=== PATIENT | male | born 1995 | race Caucasian/White ===

== ENCOUNTER 2023-07-07 07:40 | Inpatient (IN) | payer OTHER, SELFPAY ==
[2023-07-07] VITALS (14 sets, daily range): BP systolic 113–139; BP diastolic 64–93; PULSE 60–89; RESP 11–23; TEMP 36.4–36.8; O2SAT 96–100; BMI 25.1; BMI 25.0
--- NOTE | 2023-07-07 08:05 | DI.RAD.S_ITS ---
PROCEDURE: XR CHEST 1V INDICATIONS: chest pain TECHNIQUE: One view of the chest was acquired. COMPARISON: None. FINDINGS: Surgical changes and devices: None. Lungs and pleura: Lungs are clear. No pleural effusions or pneumothorax. Mediastinum: Mediastinal contours appear normal. Heart size is normal. Bones and chest wall: No suspicious bony lesions. Overlying soft tissues appear unremarkable. IMPRESSION: No acute cardiopulmonary abnormality is seen. Dictated by: Mata Carmichael M.D. on 07/07/2023 at 8:35 Approved by: Mata Carmichael M.D. on 07/07/2023 at 8:36
[2023-07-07 08:12] LABS: Add Manual Diff / Slide Review NO; Basophils Absolute Auto 0 /uL (0-100); Basophils Percent Auto 0.7 % (0-2); Eosinophils Absolute Auto 0 /uL (0-450); Eosinophils Percent Auto 0.7 % (2-4); Hemoglobin 14.5 g/dL (13.5-17.5); Lymphocytes Absolute Auto 1800 /uL (1100-4500); Lymphocytes Percent Auto 33.5 % (25-40); Mean Corpuscular HGB Conc 33.7 % (30-36); Mean Corpuscular Hemoglobin 29.1 PG (26-34); Mean Corpuscular Volume 86.3 fL (80-100); Monocytes Absolute Auto 500 /uL (0-900); Monocytes Percent Auto 10.2 % (3-14); Neutrophils Absolute Auto 2900 /uL (1500-7000); Neutrophils Percent Auto 54.9 % (50-75); Platelet Count 252 X10^3/uL (150-400); Red Blood Cell Count 4.98 X10^6/uL (4.5-5.9); Red Cell Distribution Width 12.6 % (11.6-14.8); White Blood Cell Count 5.3 X10^3/uL (4.5-11.0)
[2023-07-07 08:14] LABS: Prothrombin Time 11.9 SECONDS (9.4-12.5)
[2023-07-07 08:16] LABS: PTT Partial Thromboplastin Tim 44 SECONDS (25.1-36.5)
[2023-07-07 08:19] LABS: Alanine Aminotransferase 65 IU/L (<50); Albumin 4.8 g/dL (3.5-5.0); Albumin Globulin Ratio 1.5 (1.0-2.8); Alkaline Phosphatase 67 U/L (38-126); Aspartate Aminotransferase 205 IU/L (17-59); BUN Creatinine Ratio 22.1 (6-22); Bilirubin Total 0.8 mg/dL (0.2-1.3); Blood Urea Nitrogen 15 mg/dL (9-20); Calcium 9.4 mg/dL (8.4-10.2); Carbon Dioxide 29 mmol/L (22-32); Chloride 106 mmol/L (98-107); Estimated Glomerular Filt Rate > 60 mL/min (>60); Globulin 3.3 g/dL (1.7-4.1); Glucose 95 mg/dL (70-100); HEMOLYSIS < 15 (0-50); Lipase 64 U/L (23-300); Potassium 4.1 mmol/L (3.4-5.1); Sodium 139 mmol/L (137-145); Total Protein 8.1 g/dL (6.3-8.2)
[2023-07-07 08:30] LABS: Troponin I < 0.012 ng/mL (0.01-0.034)
[2023-07-07 08:36] LABS: Creatine Kinase 9789 U/L (55-170)
--- NOTE | 2023-07-07 08:54 | ED_ITS ---
HPI - Chest Pain General Chief Complaint: Chest Pain Stated Complaint: heart feels weak, heavy chest Time Seen by Provider: 07/07/23 07:55 Source: patient Mode of arrival: Family Vehicle Limitations: no limitations History of Present Illness HPI narrative: Patient 28-year-old healthy male presents today with chest tightness. 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 He does not feel like he is exercised excessively. He has been able to do so without any worsening chest pain. He denies any shortness of breath fever chills or cough. Really not reproducible in his chest. Although it is pretty constant is nonradiating. He has felt fluttering in the past but not feeling fluttering recently or now. Not dizzy or lightheaded. Denies any significant muscle soreness Related Data Home Medications Medication Instructions Recorded Confirmed No Known Home Medications 07/07/23 07/07/23 Allergies Allergy/AdvReac Type Severity Reaction Status Date / Time Penicillins Allergy Rash Verified 07/07/23 08:16 Patient History Social History household members: significant other Smoking Status: Current some day smoker alcohol intake: current Smoking Status: Current some day smoker tobacco type: cigars alcohol intake frequency: 0-2 drinks per day Substance Use Type: does not use Exam Initial Vital Signs Initial Vital Signs: Vital Signs Pulse Rate 89 07/07/23 07:48 Blood Pressure 139/93 H 07/07/23 07:48 Pulse Oximetry 100 07/07/23 07:48 GENERAL: Alert very well-appearing 28-year-old and in no acute distress. HEENT: Head atraumatic,EOMI, pupils reactive, face symmetric, moist mucous membranes CARDIOVASCULAR: Regular rate and rhythm without murmurs, rubs or gallops. RESPIRATORY: Breath sounds equal bilaterally, no wheezes rales or rhonchi. ABDOMEN: Soft, nontender. Normoactive bowel sounds all 4 quadrants. No guarding or rebound. EXTREMITIES: Normal range of motion, no clubbing or edema. Neurovascularly intact NEUROLOGICAL: Alert and oriented x4.Normal gait and speech. SKIN: Warm, dry, no laceration, no petechiae, no rashes or lesions. Course Orders Ordered: Acetaminophen (Acetaminophen 325 Mg Tablet) 650 mg PO Q6H PRN PRN Reason: Fever/Mild Pain (1-3) Sodium Chloride (Normal Saline 0.9%) 1,000 mls @ 200 mls/hr IV CONT EMILIANO Last Infusion: 07/07/23 10:49 Dose: 200 mls/hr Documented By: Infusion: 07/07/23 10:19 Dose: 0 mls/hr Documented By: Admin: 07/07/23 09:51 Dose: 200 mls/hr Documented By: ANTONIA Naloxone HCl (Naloxone 0.4 Mg/Ml Vial) 0.2 mg IV Q2MIN PRN PRN Reason: Opiate Reversal Ondansetron HCl (Ondansetron 4 Mg Odt) 4 mg PO Q8HR PRN PRN Reason: Nausea And Vomiting Oxycodone HCl (Oxycodone Ir 5 Mg Tablet) 5 mg PO Q3H PRN PRN Reason: Pain, Moderate (4-6) Discontinued Medications Aspirin (Aspirin 81 Mg Chew Tab) 324 mg PO NOW ONE Stop: 07/07/23 08:06 Last Admin: 07/07/23 08:08 Dose: Not Given Documented By: CONSUELO Sodium Chloride (Normal Saline 0.9%) 1,000 mls @ 1,000 mls/hr IV BOLUS ONE Stop: 07/07/23 09:42 Last Infusion: 07/07/23 09:43 Dose: Infused Documented By: Admin: 07/07/23 08:59 Dose: 1,000 mls/hr Documented By: ANTONIA Vital Signs Vital signs: Vital Signs - 8 hr 07/07/23 08:05 Temperature 97.5 F L Pulse Rate 89 Respiratory Rate 19 Blood Pressure 139/93 H Pulse Oximetry 100 Oxygen Delivery Method Room Air MDM - Chest Pain Lab Data 07/07/23 07:58 07/07/23 14:00 Labs: Lab Results 07/07/23 07/07/23 Range/Units 07:58 09:01 WBC 5.3 (4.5-11.0) X10^3/uL RBC 4.98 (4.5-5.9) X10^6/uL Hgb 14.5 (13.5-17.5) g/dL Hct 43.0 (41-53) % MCV 86.3 (80-100) fL MCH 29.1 (26-34) PG MCHC 33.7 (30-36) % RDW 12.6 (11.6-14.8) % Plt Count 252 (150-400) X10^3/uL Neut % (Auto) 54.9 (50-75) % Lymph % (Auto) 33.5 (25-40) % [place] % (Auto) 10.2 (3-14) % Eos % (Auto) 0.7 L (2-4) % Baso % (Auto) 0.7 (0-2) % Neut # (Auto) 2900 (1550-8964) /uL Lymph # (Auto) 1800 (1447-0000) /uL [place] # (Auto) 500 (0-900) /uL Eos # (Auto) 0 (0-450) /uL Baso # (Auto) 0 (0-100) /uL PT 11.9 (9.4-12.5) SECONDS INR 1.0 (0.9-1.3) APTT 44 H (25.1-36.5) SECONDS Sodium 139 (137-145) mmol/L Potassium 4.1 (3.4-5.1) mmol/L Chloride 106 (98-107) mmol/L Carbon Dioxide 29 (22-32) mmol/L BUN 15 (9-20) mg/dL Creatinine 0.68 (0.66-1.25) mg/dL Estimated GFR > 60 (>60) mL/min BUN/Creatinine Ratio 22.1 H (6-22) Glucose 95 (70-100) mg/dL Calcium 9.4 (8.4-10.2) mg/dL Magnesium 2.0 (1.6-2.3) mg/dL Total Bilirubin 0.8 (0.2-1.3) mg/dL AST 205 H (17-59) IU/L ALT 65 H (<50) IU/L Alkaline Phosphatase 67 (38-126) U/L Total Creatine Kinase 9789 H (55-170) U/L Troponin I < 0.012 (0.01-0.034) ng/mL Total Protein 8.1 (6.3-8.2) g/dL Albumin 4.8 (3.5-5.0) g/dL Globulin 3.3 (1.7-4.1) g/dL Albumin/Globulin Ratio 1.5 (1.0-2.8) Lipase 64 (23-300) U/L Urine Color Yellow Urine Appearance Clear Urine pH 5.5 (4.5-8.0) Ur Specific [place] <=1.005 (1.000-1.035) Urine Protein Negative (Negative) Urine Glucose (UA) Negative (Negative) g/dL Urine Ketones Negative (NEGATIVE) Urine Occult Blood Negative (Negative) Urine Nitrate Negative (Negative) Urine Bilirubin Negative (NEGATIVE) Urine Urobilinogen 0.2 (0.2) E.U./dL Ur Leukocyte Esterase Negative (NEGATIVE) Urine RBC None seen (0-5/HPF) Urine WBC None seen (0-5/HPF) Ur Squamous Epith Cells None seen (0-5/HPF) Urine Bacteria None seen (None) Ur Culture Indicated? Cult not indicated Vol Urine Centrifuged 10ml (spun) Imaging Data Chest x-ray: Radiologist's Impression: PROCEDURE: XR CHEST 1V INDICATIONS: chest pain TECHNIQUE: One view of the chest was acquired. COMPARISON: None. FINDINGS: Surgical changes and devices: None. Lungs and pleura: Lungs are clear. No pleural effusions or pneumothorax. Mediastinum: Mediastinal contours appear normal. Heart size is normal. Bones and chest wall: No suspicious bony lesions. Overlying soft tissues appear unremarkable. IMPRESSION: No acute cardiopulmonary abnormality is seen. Dictated by: Mata Carmichael M.D. on 07/07/2023 at 8:35 ECG Data Interpretation: Sinus rhythm rate 83 TN interval 156 QRS [address] changes MDM Narrative Medical decision making narrative: Patient healthy 28-year-old male presents with some chest tightness and discomfort, he reports excessive exercise. Blood work has been reviewed abnormal values include a CPK of 9789 with AST 205 ALT 65 bilirubin 0.8, troponin is negative Chest x-ray reviewed Bedside ultrasound done by myself does not show a pericardial effusion Chest x-ray has been reviewed without cardiopulmonary prior EKG has been reviewed Patient overall appears very comfortable but is found to have rhabdomyolysis I suspect combination of supplement and exercise. He has no renal dysfunction urinalysis appears clear without RBC Dr. Page accepts patient Discharge Plan Departure Patient Disposition: Admitted as Observation Clinical Impression: Rhabdomyolysis Admit Date/Time: 07/07/23 09:43 Admit Provider: Irving Page
--- NOTE | 2023-07-07 08:57 | PC.NURSE ---
Chest pressure at rest; worse when working out. Mild pain. Pt states he feels his heart beat is more intense at times.
[2023-07-07] MEDS: SODIUM CHLORIDE 0.9% 1,000 ML 1000 ML IV (08:59)
[2023-07-07 09:08] LABS: Appearance Urine UA CLEAR; Bilirubin Urine UA NEGATIVE (NEGATIVE); Color Urine UA YELLOW; Glucose Urine UA NEGATIVE (Negative); Ketones Urine UA NEGATIVE (NEGATIVE); Leukocyte Esterase Urine UA NEGATIVE (NEGATIVE); Nitrite Urine UA NEGATIVE (Negative); Occult Blood Urine UA NEGATIVE (Negative); Protein Urine UA NEGATIVE (Negative); Specific Gravity Urine UA <=1.005 (1.000-1.035); Urobilinogen Urine UA 0.2 E.U./dL (0.2); pH Urine UA 5.5 (4.5-8.0)
[2023-07-07 09:09] LABS: Urine Volume 10mL (spun)
[2023-07-07 09:10] LABS: Bacteria Urine None Seen; Culture Indicated Urine Cult Not Indicated; RBC Urine None Seen (0-5/HPF); Squamous Epithelial Cell Urine None Seen (0-5/HPF); WBC Urine None Seen (0-5/HPF)
[2023-07-07] MEDS: SODIUM CHLORIDE 0.9% 1,000 ML 200 ML IV ×2 (09:51→19:51)
--- NOTE | 2023-07-07 11:49 | PM.HP.1 ---
History of Present Illness History of Present Illness Date Patient Seen: 07/07/23 Time Patient Seen: 11:49 Chief complaint: heart feels weak, heavy chest Narrative: 28 M with no PMH who presented to the hospital with chest pain. Chest pain is constant, pressure like / squeezing sensation without any radiation. It does not worsen with breathing or position changes, the area is a bit tender. He has had no fever, nauea, vomiting, shortness of breath. No dysuria or urine color changes. 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 Started taking a muscle / protein supplement as well. In the ER, vitals were unremarkable, as was a chest xray. Chest pain was reproducible. CK level however showed a CK of 9789 with AST 205 and ALT 65. EKG showed a possible U wave vs artifact but potassium was normal. UA was negative and showed no occult blood. He was admitted for rhabdomyolysis given his CK elevation and concern for possible development of kidney failure. [facility] Social History household members: significant other Smoking Status: Current some day smoker alcohol intake: current Meds Home Medications and Allergies Home Medications Medication Instructions Recorded Confirmed Type No Known Home Medications 07/07/23 07/07/23 History Allergies Allergy/AdvReac Type Severity Reaction Status Date / Time Penicillins Allergy Rash Verified 07/07/23 08:16 Review of Systems Review of Systems Narrative: All other systems reviewed with the patient and are negative unless otherwise stated. Exam Vital Signs (past 8 hours): - 07/07/23 07:48 07/07/23 07:48 07/07/23 08:04 Temperature Pulse Rate 89 72 Respiratory Rate 11 L Blood Pressure 139/93 H Pulse Oximetry 100 97 Oxygen Delivery Method Oxygen Flow Rate 07/07/23 08:05 07/07/23 08:05 07/07/23 08:05 Temperature 97.5 F L Pulse Rate 89 64 Respiratory Rate 19 15 Blood Pressure 139/93 H 134/78 Pulse Oximetry 100 100 Oxygen Delivery Method Room Air Oxygen Flow Rate 07/07/23 08:30 07/07/23 08:30 07/07/23 09:00 Temperature Pulse Rate 78 76 Respiratory Rate 23 14 Blood Pressure 134/64 Pulse Oximetry 99 100 Oxygen Delivery Method Oxygen Flow Rate 07/07/23 09:30 07/07/23 09:47 07/07/23 09:47 Temperature Pulse Rate 61 70 Respiratory Rate 17 15 Blood Pressure 127/81 Pulse Oximetry 100 96 Oxygen Delivery Method Oxygen Flow Rate 07/07/23 10:52 07/07/23 11:35 Temperature 97.6 F Pulse Rate 60 Respiratory Rate 12 Blood Pressure 136/77 Pulse Oximetry 99 100 Oxygen Delivery Method Room Air Oxygen Flow Rate 0 0 Oxygen Delivery Method Room Air Oxygen Flow Rate 0 Narrative Exam Narrative: General:? Patient is well developed and well nourished, in no distress at this time. HEENT:? Normocephalic, atraumatic, extraocular muscles intact, oral pharynx is clear and mucous membranes are moist. Abdomen: S NT ND. Musculoskeletal:? Muscle strength and tone are equal within normal limits, no deformity. Extremities: No edema or joint effusions. Skin:? Pale,? Warm to touch,dry and intact without rashes, ulcerations or petechiae.? Neuro:? Alert and orientated x3,? sensation to touch intact in all extremities, no gross deficits noted of cranial nerves. Psych:? Patient has a well-kept appearance, appropriate affect, mental status attitude thought context and judgment are appropriate for age. Objective ECG Impression: likely normal sinus rhythm, likely artifact rather than U wave Labs 07/07/23 07:58 07/07/23 07:58 Labs: Laboratory Results - last 24 hr 07/07/23 07/07/23 07:58 09:01 WBC 5.3 RBC 4.98 Hgb 14.5 Hct 43.0 MCV 86.3 MCH 29.1 MCHC 33.7 RDW 12.6 Plt Count 252 Neut % (Auto) 54.9 Lymph % (Auto) 33.5 [place] % (Auto) 10.2 Eos % (Auto) 0.7 L Baso % (Auto) 0.7 Neut # (Auto) 2900 Lymph # (Auto) 1800 [place] # (Auto) 500 Eos # (Auto) 0 Baso # (Auto) 0 PT 11.9 INR 1.0 APTT 44 H Sodium 139 Potassium 4.1 Chloride 106 Carbon Dioxide 29 BUN 15 Creatinine 0.68 Estimated GFR > 60 BUN/Creatinine Ratio 22.1 H Glucose 95 Calcium 9.4 Magnesium 2.0 Total Bilirubin 0.8 AST 205 H ALT 65 H Alkaline Phosphatase 67 Total Creatine Kinase 9789 H Troponin I < 0.012 Total Protein 8.1 Albumin 4.8 Globulin 3.3 Albumin/Globulin Ratio 1.5 Lipase 64 Urine Color Yellow Urine Appearance Clear Urine pH 5.5 Ur Specific [place] <=1.005 Urine Protein Negative Urine Glucose (UA) Negative Urine Ketones Negative Urine Occult Blood Negative Urine Nitrate Negative Urine Bilirubin Negative Urine Urobilinogen 0.2 Ur Leukocyte Esterase Negative Urine RBC None seen Urine WBC None seen Ur Squamous Epith Cells None seen Urine Bacteria None seen Ur Culture Indicated? Cult not indicated Vol Urine Centrifuged 10ml (spun) Assessment & Plan Assessment & Plan narrative: 1. Acute non-traumatic rhabdomyolysis, present on admission - given 1L NS bolus in the ER, continue NS at 200 cc per hour - check 6 hr CK and repeat BMP. If improving but still >1000 will continue hydration overnight and repeat in the morning. - no tele at this time, suspect chest pain is musculoskeletal. If shortness of breath develops or hypoxia will get CTA. EKG shows NSR (possible U wave but more likely artifact / motion). Code: Full, surrogate is patient's mother DVT: Low risk, ambulatory, not indicated I have utilized all available immediate resources to obtain, update, or review the patient's current medications. Dispo: patient admitted under observation status. Will need continued IV fluids until improvement of CK values indicating lower risk of acute renal failure. Additional history obtained via discussions with the ER provider. These discussions contributed to the creation of the above assessment and plan. I have reviewed patient's presenting documentation, labs, and imaging personally. Quality VTE Deep Vein Thrombosis/Pulmonary Embolism Present on Admission: No
[2023-07-07 14:38] LABS: BUN Creatinine Ratio 18.2 (6-22); Blood Urea Nitrogen 12 mg/dL (9-20); Calcium 8.4 mg/dL (8.4-10.2); Carbon Dioxide 27 mmol/L (22-32); Chloride 108 mmol/L (98-107); Estimated Glomerular Filt Rate > 60 mL/min (>60); Glucose 104 mg/dL (70-100); HEMOLYSIS 38 (0-50); Potassium 3.6 mmol/L (3.4-5.1); Sodium 138 mmol/L (137-145)
[2023-07-07 15:29] LABS: Creatine Kinase 7399 U/L (55-170)
--- NOTE | 2023-07-07 16:11 | PC.NURSE ---
Patient arrived to room 212 this a.m. just prior to noon. He is A&OX4, VSS, afebrile on RA. He is independent in the room, denies SOB, dizziness, palpitations, n/v. He states mild left sided chest pain 1-05/27. IVF NS @ 200 ml/hr. Creatinine Kinase level still elevated but improving. RN clarified with MD, no orders for cardiac monitoring at this time.
[2023-07-08] VITALS (11 sets, daily range): BP systolic 107–122; BP diastolic 62–72; PULSE 55–77; RESP 15–18; TEMP 36.3–36.4; O2SAT 96–100
[2023-07-08] MEDS: SODIUM CHLORIDE 0.9% 1,000 ML 200 ML IV ×4 (00:15→16:35)
[2023-07-08 05:03] LABS: Add Manual Diff / Slide Review NO; Basophils Absolute Auto 0 /uL (0-100); Basophils Percent Auto 0.7 % (0-2); Eosinophils Absolute Auto 100 /uL (0-450); Eosinophils Percent Auto 1.5 % (2-4); Hematocrit 38.3 % (41-53); Hemoglobin 12.9 g/dL (13.5-17.5); Lymphocytes Absolute Auto 1900 /uL (1100-4500); Lymphocytes Percent Auto 34.4 % (25-40); Mean Corpuscular HGB Conc 33.7 % (30-36); Mean Corpuscular Hemoglobin 28.9 PG (26-34); Mean Corpuscular Volume 85.9 fL (80-100); Monocytes Absolute Auto 500 /uL (0-900); Monocytes Percent Auto 9.9 % (3-14); Neutrophils Absolute Auto 2900 /uL (1500-7000); Neutrophils Percent Auto 53.5 % (50-75); Platelet Count 224 X10^3/uL (150-400); Red Blood Cell Count 4.46 X10^6/uL (4.5-5.9); Red Cell Distribution Width 12.4 % (11.6-14.8); White Blood Cell Count 5.5 X10^3/uL (4.5-11.0)
[2023-07-08 05:18] LABS: Alanine Aminotransferase 61 IU/L (<50); Albumin 3.7 g/dL (3.5-5.0); Albumin Globulin Ratio 1.4 (1.0-2.8); Alkaline Phosphatase 54 U/L (38-126); Aspartate Aminotransferase 195 IU/L (17-59); BUN Creatinine Ratio 18.2 (6-22); Bilirubin Total 0.5 mg/dL (0.2-1.3); Blood Urea Nitrogen 12 mg/dL (9-20); Calcium 8.3 mg/dL (8.4-10.2); Carbon Dioxide 26 mmol/L (22-32); Chloride 110 mmol/L (98-107); Estimated Glomerular Filt Rate > 60 mL/min (>60); Globulin 2.6 g/dL (1.7-4.1); Glucose 106 mg/dL (70-100); HEMOLYSIS 23 (0-50); Sodium 140 mmol/L (137-145); Total Protein 6.3 g/dL (6.3-8.2)
[2023-07-08 06:03] LABS: Creatine Kinase 9269 U/L (55-170)
--- NOTE | 2023-07-08 12:21 | PM.PN.1 ---
Subjective <kyree [facility] Filed: 07/08/23 12:31> Subjective Interval history: Papo Marc is a 28 YO M with rhabdomyolysis. He was admitted overnight to monitor his CK levels and any electrolyte abnormalities. He is feeling great this morning with no overnight events. His chest pain has completely resolved. He is still complaining of some UE and LE muscle soreness but is otherwise asymptomatic. He reports no dark or bloody urine at this time. Exam <[facility] Filed: 07/08/23 12:31> Vital Signs (past 8 hours): - 07/08/23 04:45 07/08/23 06:00 07/08/23 08:00 Temperature 97.6 F Pulse Rate 77 55 L Respiratory Rate 16 Blood Pressure 112/67 107/63 Pulse Oximetry 97 98 Oxygen Delivery Method Room Air Oxygen Flow Rate 0 0 07/08/23 09:00 07/08/23 10:00 07/08/23 12:00 Temperature 97.4 F L Pulse Rate 70 Respiratory Rate 18 Blood Pressure 110/70 Pulse Oximetry 98 100 Oxygen Delivery Method Room Air Room Air Oxygen Flow Rate 0 Oxygen Delivery Method Room Air Oxygen Flow Rate 0 Narrative Exam Narrative: General:? Patient is well developed and well nourished, in no distress at this time. HEENT:? Normocephalic, atraumatic, extraocular muscles intact, oral pharynx is clear and mucous membranes are moist. Abdomen: S NT ND. Musculoskeletal:? Muscle strength and tone are equal within normal limits, no deformity. Extremities: No edema or joint effusions. Skin:? Pale,? Warm to touch,dry and intact without rashes, ulcerations or petechiae.? Neuro:? Alert and orientated x3,? sensation to touch intact in all extremities, no gross deficits noted of cranial nerves. Psych:? Patient has a well-kept appearance, appropriate affect, mental status attitude thought context and judgment are appropriate for age. Objective <kyree [facility] Filed: 07/08/23 12:31> Labs 07/08/23 04:48 07/08/23 04:48 Labs: Laboratory Results - last 24 hr 07/07/23 07/08/23 14:00 04:48 WBC 5.5 RBC 4.46 L Hgb 12.9 L Hct 38.3 L MCV 85.9 MCH 28.9 MCHC 33.7 RDW 12.4 Plt Count 224 Neut % (Auto) 53.5 Lymph % (Auto) 34.4 [place] % (Auto) 9.9 Eos % (Auto) 1.5 L Baso % (Auto) 0.7 Neut # (Auto) 2900 Lymph # (Auto) 1900 [place] # (Auto) 500 Eos # (Auto) 100 Baso # (Auto) 0 Sodium 138 140 Potassium 3.6 4.0 Chloride 108 H 110 H Carbon Dioxide 27 26 BUN 12 12 Creatinine 0.66 0.66 Estimated GFR > 60 > 60 BUN/Creatinine Ratio 18.2 18.2 Glucose 104 H 106 H Calcium 8.4 8.3 L Total Bilirubin 0.5 AST 195 H ALT 61 H Alkaline Phosphatase 54 Total Creatine Kinase 7399 H 9269 H Total Protein 6.3 Albumin 3.7 Globulin 2.6 Albumin/Globulin Ratio 1.4 [facility] <Ezra Paco - Last Filed: 07/08/23 12:31> Social History household members: significant other Smoking Status: Current some day smoker alcohol intake: current Assessment & Plan <Ezra Robertbrigid - Last Filed: 07/08/23 12:31> Assessment & Plan narrative: 1. Acute non-traumatic rhabdomyolysis, present on admission - given 1L NS bolus in the ER, continue NS at 200 cc per hour - check morning CK and repeat BMP. If improving but still >5000 will continue hydration overnight and repeat in the morning. - no tele at this time, suspect chest pain is musculoskeletal. If shortness of breath develops or hypoxia will get CTA. EKG shows NSR (possible U wave but more likely artifact / motion). - Ck still elevated at 9269 Code: Full, surrogate is patient's mother DVT: Low risk, ambulatory, not indicated I have utilized all available immediate resources to obtain, update, or review the patient's current medications. Dispo: patient admitted under observation status. Will need continued IV fluids until improvement of CK values indicating lower risk of acute renal failure. Additional history obtained via discussions with the ER provider. These discussions contributed to the creation of the above assessment and plan. I have reviewed patient's presenting documentation, labs, and imaging personally. <Xu Hawley DO - Last Filed: 07/08/23 12:46> Assessment & Plan narrative: 1. Acute non-traumatic rhabdomyolysis, present on admission - given 1L NS bolus in the ER, continue NS at 200 cc per hour - trend CK until levels <5000 - Ck still elevated at 9269 2. Chest pain - likely MSK, now resolved Code: Full, surrogate is patient's mother DVT: Low risk, ambulatory, not indicated I have utilized all available immediate resources to obtain, update, or review the patient's current medications. Dispo: 1-2 days. Will need continued IV fluids until improvement of CK values indicating lower risk of acute renal failure. Quality <Ezra Antonio - Last Filed: 07/08/23 12:31> VTE Deep Vein Thrombosis/Pulmonary Embolism Present on Admission: No
--- NOTE | 2023-07-08 14:34 | CM.DANOTE ---
Initial DCP Assessment Note Reviewed EMR and team rounds for pt's medical status and updates. Met with pt and his significant other at bedside to introduce self and role. Pt was found to be awake/alert/oriented and able to discuss d/c needs/preferences for home once he's medically cleared. 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 Payor: Dave Mon PCP: [facility] Pt is a 28 year-old M who presented to the ED last evening with c/o chest tightness and pain following an excessive workout. He was diagnosed with rhabdomyolysis, and was then admitted for concerns of CK elevating and risk for kidney failure. Plan for admission includes monitoring kidney function, IV fluids. Pt will remain inpt overnight and d/c on Monday home w/SO. No anticipated d/c needs identified at this time. DOOR CUTTER will continue to follow and assist with any further evolving needs that may arise during his admission. Discharge Planning/Care Management CM Discharge Assessment Start: 07/08/23 14:15 Freq: Status: Active Protocol: Document 07/08/23 14:16 DPL (Rec: 07/08/23 14:34 DPL [id number]) Discharge Planning Assessment Assigned Construction Producer CARO Bueno Advance Directives? No History Provided By Patient,Medical Record Has Patient been admitted in last 30 No days? Prior Living Arrangements House Household Members significant other Type of transporation used prior to Drives own vehicle admit Independent with ADL's Yes Is patient alert and oriented? Yes Comment N/A Caregiver for Another No Barriers to Discharge No Discharge Plan Home Transportation Arrangement Significant Other Referrals Initiated None needed Whiteboard Updated in Patient Room with Yes name and ext. # of Construction Producer Review Status In Process Please Provide Date Initial DC 07/08/23 Assessment Was Performed
[2023-07-09 03:00] VITALS: BP 103/52; PULSE 61; RESP 15; TEMP 35.8; O2SAT 98
[2023-07-09 05:22] LABS: Add Manual Diff / Slide Review NO; Basophils Absolute Auto 0 /uL (0-100); Basophils Percent Auto 0.7 % (0-2); Eosinophils Absolute Auto 100 /uL (0-450); Eosinophils Percent Auto 1.5 % (2-4); Hematocrit 39.7 % (41-53); Hemoglobin 13.4 g/dL (13.5-17.5); Lymphocytes Absolute Auto 2000 /uL (1100-4500); Lymphocytes Percent Auto 35.9 % (25-40); Mean Corpuscular HGB Conc 33.8 % (30-36); Mean Corpuscular Hemoglobin 29.2 PG (26-34); Mean Corpuscular Volume 86.3 fL (80-100); Monocytes Absolute Auto 600 /uL (0-900); Monocytes Percent Auto 10.8 % (3-14); Neutrophils Absolute Auto 2800 /uL (1500-7000); Neutrophils Percent Auto 51.1 % (50-75); Platelet Count 216 X10^3/uL (150-400); Red Cell Distribution Width 12.4 % (11.6-14.8); White Blood Cell Count 5.5 X10^3/uL (4.5-11.0)
[2023-07-09 05:36] LABS: Alanine Aminotransferase 78 IU/L (<50); Albumin 4.1 g/dL (3.5-5.0); Albumin Globulin Ratio 1.5 (1.0-2.8); Alkaline Phosphatase 56 U/L (38-126); Aspartate Aminotransferase 222 IU/L (17-59); BUN Creatinine Ratio 17.4 (6-22); Bilirubin Total 0.5 mg/dL (0.2-1.3); Blood Urea Nitrogen 12 mg/dL (9-20); Calcium 8.9 mg/dL (8.4-10.2); Carbon Dioxide 30 mmol/L (22-32); Chloride 108 mmol/L (98-107); Estimated Glomerular Filt Rate > 60 mL/min (>60); Globulin 2.7 g/dL (1.7-4.1); Glucose 97 mg/dL (70-100); HEMOLYSIS 15 (0-50); Potassium 4.1 mmol/L (3.4-5.1); Sodium 140 mmol/L (137-145); Total Protein 6.8 g/dL (6.3-8.2)
[2023-07-09 05:54] LABS: Creatine Kinase 8395 U/L (55-170)
[2023-07-09 06:00] VITALS: O2SAT 98
[2023-07-09] MEDS: SODIUM CHLORIDE 0.9% 1,000 ML 200 ML IV (06:18)
[2023-07-09 07:00] VITALS: BP 103/65; PULSE 58; RESP 16; TEMP 36.6; O2SAT 99
--- NOTE | 2023-07-09 09:43 | PM.DS.1 ---
History of Present Illness History of Present Illness Chief complaint: heart feels weak, heavy chest Narrative: 28 M with no PMH who presented to the hospital with chest pain. Chest pain is constant, pressure like / squeezing sensation without any radiation. It does not worsen with breathing or position changes, the area is a bit tender. He has had no fever, nauea, vomiting, shortness of breath. No dysuria or urine color changes. 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 Started taking a muscle / protein supplement as well. In the ER, vitals were unremarkable, as was a chest xray. Chest pain was reproducible. CK level however showed a CK of 9789 with AST 205 and ALT 65. EKG showed a possible U wave vs artifact but potassium was normal. UA was negative and showed no occult blood. He was admitted for rhabdomyolysis given his CK elevation and concern for possible development of kidney failure. Discharge Providers Provider Date of admission: 07/07/23 09:43 Discharge Date: 07/09/23 Discharge provider: Xu Hawley DO Summary Hospital Course Discharge Diagnosis: 1. Acute non-traumatic rhabdomyolysis, present on admission - given 1L NS bolus in the ER, received NS at 200 cc per hour and making lots of urine - trend CK until levels <5000 - Ck elevated at 9269 but now downtrending to 8k - recheck BMP and CK in 1 week as outpatinet - patient will hydrate well and rest for a week until labs are done 2. Chest pain - likely MSK, now resolved Hospital Course: Admitted for CP and found to have rhabdo from overexercise. Had worked out hard in the gym for 5 days straight. CK levels at 9k so admitted for monitoring of Cr and continuous IVF. Also had elevated LFT's likely from muscle source. His CK levels lowered to 8k and Cr remained stable. He was discharged to get a CMP and CK check as outpatient in 1 week. Exam Vital Signs (past 8 hours): - 07/09/23 02:00 07/09/23 03:00 07/09/23 06:00 Temperature 96.5 F L Pulse Rate 61 Respiratory Rate 15 Blood Pressure 103/52 L Pulse Oximetry 98 98 Oxygen Delivery Method Room Air Room Air Oxygen Flow Rate 0 Oxygen Delivery Method Room Air Oxygen Flow Rate 0 Narrative Exam Narrative: General:? Patient is well developed and well nourished, in no distress at this time. HEENT:? Normocephalic, atraumatic, extraocular muscles intact, oral pharynx is clear and mucous membranes are moist. Abdomen: S NT ND. Musculoskeletal:? Muscle strength and tone are equal within normal limits, no deformity. Extremities: No edema or joint effusions. Skin:? Pale,? Warm to touch,dry and intact without rashes, ulcerations or petechiae.? Neuro:? Alert and orientated x3,? sensation to touch intact in all extremities, no gross deficits noted of cranial nerves. Psych:? Patient has a well-kept appearance, appropriate affect, mental status attitude thought context and judgment are appropriate for age. Objective Labs 07/09/23 05:11 07/09/23 05:11 Labs: Laboratory Results - last 24 hr 07/09/23 05:11 WBC 5.5 RBC 4.60 Hgb 13.4 L Hct 39.7 L MCV 86.3 MCH 29.2 MCHC 33.8 RDW 12.4 Plt Count 216 Neut % (Auto) 51.1 Lymph % (Auto) 35.9 Saline % (Auto) 10.8 Eos % (Auto) 1.5 L Baso % (Auto) 0.7 Neut # (Auto) 2800 Lymph # (Auto) 2000 Saline # (Auto) 600 Eos # (Auto) 100 Baso # (Auto) 0 Sodium 140 Potassium 4.1 Chloride 108 H Carbon Dioxide 30 BUN 12 Creatinine 0.69 Estimated GFR > 60 BUN/Creatinine Ratio 17.4 Glucose 97 Calcium 8.9 Total Bilirubin 0.5 AST 222 H ALT 78 H Alkaline Phosphatase 56 Total Creatine Kinase 8395 H Total Protein 6.8 Albumin 4.1 Globulin 2.7 Albumin/[facility] 1.5 [facility] Social History household members: significant other Smoking Status: Current some day smoker alcohol intake: current Discharge Plan Discharge Plan Provider Discharge Comment: You had rhabdomyolysis which is a dumping of muscle proteins from overuse. You received IV fluids and your CK levels are slowly coming down. Please get lab work done in 5-7 days to check on your CK and kidney function. Drink a ton of water the next week and don't overexert yourself. Discharge orders & Medications Discharge Orders: Discharge (Order); Ordered 07/09/23 Ordered By: Xu Hawley Other Ambulatory Orders: Basic Metabolic Panel (Urgent) Timeframe: 1 Week Facility: [facility] - Location: Laboratory Ordered By: Xu Hawley Creatine Kinase (Urgent) Timeframe: 1 Week Facility: [facility] - Location: Laboratory Ordered By: Xu Hawley Visit Report/Discharge Packet Stand Alone Forms: Patient Portal/API, Stroke Signs & Symptoms Discharge Data Attending Provider: Irving Page Admit Date/Time: 07/07/23 09:43 Quality VTE Deep Vein Thrombosis/Pulmonary Embolism Present on Admission: No
--- NOTE | 2023-07-09 10:24 | CM.DPC ---
DCP Cont. Reviewed EMR and team rounds for status updates. Pt has been medically cleared for d/c, his significant other will transport him home.
--- NOTE | 2023-07-09 10:48 | PC.NURSE ---
Patient is discharging to home. Paperwork gone over. IV taken out by grant administrator. Patients gf will be taking him home.
== END 2023-07-09 10:45 | disposition home or self-care (01) | DRG 558 ==
LOC: ED 09:41 → AC 09:43
PROVIDERS: Student in an Organized Health Care Education/Training Program; Admitting Provider Internal Medicine; Emergency Provider Emergency Medicine; Referring Provider Emergency Medicine; Visit Provider Internal Medicine
DX: M62.82 Rhabdomyolysis (principal); R07.9 Chest pain, unspecified
CPT/HCPCS: 36415; 71045; 80048; 80053; 81001; 82550; 83690; 83735; 84484; 85025; 85610; 85730; 93005; 99284; G0378